=== PATIENT | male | born 1935 | race Caucasian/White ===

== ENCOUNTER 2017-07-05 01:19 | Emergency (ER) | payer MEDICARE ==
[~2017-07-05] VITALS: Ht 177.8 cm; Wt 93.5 kg
[2017-07-05 01:24] VITALS: Ht 177.8 cm; Wt 93.5 kg
[2017-07-05] MEDS ORDERED: SILV20CR14 TOP (02:25)
[2017-07-05] MEDS ORDERED: IBUP400T22 PO (02:25)
[2017-07-05] MEDS ORDERED: TRAM50TA2 PO (02:25)
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
== END 2017-07-05 03:00 | disposition home or self-care (01) ==
LOC: FTE 01:19
DX: T23.102A Burn of first degree of left hand, unspecified site, initial encounter (principal); I10 Essential (primary) hypertension; X11.8XXA Contact with other hot tap-water, initial encounter; Y92.9 Unspecified place or not applicable
CPT/HCPCS: 99284